=== PATIENT | female | born 1950 | race Caucasian/White ===

== ENCOUNTER 2020-11-06 15:50 | Inpatient (IN) | payer OTHER ==
[~2020-11-06] VITALS: Ht 165.1 cm; Wt 76.5 kg
[~2020-11-06 15:50] MED LIST: ACEBUTCAFT PO; ALBU2.5V5 INH; ALBU90OI6; Aspir 8181 MG; CHOLESTEROL MED PO; CITA20 PO; Cvs Heartburn1 EACH; DAILY MULTIPLE1 EACH; DIAZ2 PO; FENO145 PO; HYDACE5 PO; HYDCHL25; HYDCHL25 PO; LEVSOD50 PO; LEVSOD75 PO; ONDA4 PO; OXYACE5T PO; OXYC5 PO; PROC10 PO; Pravachol40 MG
[2020-11-06 16:44] LABS: PCO2 Venous 47.1 mmHg (38-42); PO2 Venous 29.9 mmHg (38-42); pH Blood Venous 7.41 (7.34-7.37)
[2020-11-06 16:45] LABS: Base Excess Venous 5.3 mmol/L; Bicarbonate Venous 27.1 mmol/L (24.0-30.0)
[2020-11-06 16:53] LABS: BASOPHILS ABSOLUTE AUTO 0.03 K/mm3 (0.00-0.23); BASOPHILS PERCENT AUTO 0 % (0-2); EOSINOPHILS PERCENT AUTO 0 % (0-6); Hematocrit 45.5 % (33.0-51.0); Hemoglobin 15.4 g/dL (11.5-16.0); IMMATURE GRAN ABSOLUTE AUTO 0.14 K/mm3 (0.00-0.10); IMMATURE GRAN PERCENT AUTO 1 % (0-1); LYMPHOCYTES ABSOLUTE AUTO 0.95 K/mm3 (0.84-5.20); LYMPHOCYTES PERCENT AUTO 7 % (21-46); MONOCYTES ABSOLUTE AUTO 0.47 K/mm3 (0.16-1.47); MONOCYTES PERCENT AUTO 4 % (4-13); Mean Corpuscular HGB 30.7 pg (26.0-34.0); Mean Corpuscular HGB Conc 33.8 g/dL (31.5-36.5); Mean Corpuscular Volume 91 fL (80-100); Mean Platelet Volume 9.9 fL (9.1-12.4); NEUTROPHILS ABSOLUTE AUTO 11.38 K/mm3 (1.96-9.15); NEUTROPHILS PERCENT AUTO 88 % (41-73); Platelet Count 265 K/mm3 (150-400); RDW Coefficient Variation 13.4 % (11.7-14.2); Red Blood Cell Count 5.02 M/mm3 (3.80-5.20); White Blood Cell Count 12.97 K/mm3 (4.00-11.30)
[2020-11-06 17:17] LABS: Alanine Aminotransfer (ALT/SGP 35 U/L (12-78); Albumin, Blood 2.6 g/dL (3.4-5.0); Albumin/Globulin Ratio 0.6 (0.8-1.8); Alk Phos 55 U/L (50-136); Anion Gap 7 mmol/L (6-16); Aspartate Aminotrans (AST/SGOT 40 U/L (12-37); Bilirubin, Total 0.5 mg/dL (0.1-1.0); Blood Urea Nitrogen 15 mg/dL (8-24); Bun/Creatinine Ratio 16.2 (12.0-20.0); CO2, Blood 27 mmol/L (21-32); Calcium, Blood 8.2 mg/dL (8.5-10.1); Chloride, Blood 106 mmol/L (98-108); Creatinine, Blood 0.92 mg/dL (0.40-1.00); Globulin, Blood 4.6 g/dL (2.2-4.0); Glomerular Filtration Rate >60 (60-); Glucose, Blood 145 mg/dL (70-99); Potassium, Blood 4.3 mmol/L (3.5-5.5); Sodium, Blood 140 mmol/L (136-145); Total Protein, Blood 7.2 g/dL (6.4-8.2); Troponin I <0.015 ng/mL (0.000-0.040)
--- NOTE | 2020-11-07 05:17 | NUR ---
SHIFT SUMMARY- PT. NEW ADMISSION FROM ED. A&OX2, WITH SOME CONFUSION. ARRIVED TO UNIT ON 15L ON A NON REBREATHER. PT. PLACED ON HIGH FLOW NC AND 02 DECREASED TO 12L, SATS @92%. PT. HAD NO COMPLAINTS OF PAIN OR DISCOMFORT DURING THE NIGHT. CONT/INCONT, 1PA TO BSC AND ATTENDS IN PLACE. SLEPT T/O THE NIGHT, NO APPARENT DISTRESS NOTED. CALL LIGHT WITHIN REACH, SIDE RAILS UPX2, AND BED ALARM ON FOR SAFETY. WILL CONT TO MONITOR.
[2020-11-07 05:36] LABS: BASOPHILS ABSOLUTE AUTO 0.03 K/mm3 (0.00-0.23); BASOPHILS PERCENT AUTO 0 % (0-2); EOSINOPHILS PERCENT AUTO 0 % (0-6); Hematocrit 45.5 % (33.0-51.0); Hemoglobin 15.2 g/dL (11.5-16.0); Mean Corpuscular HGB 30.4 pg (26.0-34.0); Mean Corpuscular HGB Conc 33.4 g/dL (31.5-36.5); Mean Corpuscular Volume 91 fL (80-100); Mean Platelet Volume 9.8 fL (9.1-12.4); Platelet Count 241 K/mm3 (150-400); RDW Coefficient Variation 13.5 % (11.7-14.2); RDW Standard Deviation 45.2 fL (35.1-46.3); White Blood Cell Count 12.17 K/mm3 (4.00-11.30)
[2020-11-07 05:47] LABS: IMMATURE GRAN ABSOLUTE AUTO 0.12 K/mm3 (0.00-0.10); IMMATURE GRAN PERCENT AUTO 1 % (0-1); LYMPHOCYTES ABSOLUTE AUTO 0.86 K/mm3 (0.84-5.20); LYMPHOCYTES PERCENT AUTO 7 % (21-46); MONOCYTES ABSOLUTE AUTO 0.31 K/mm3 (0.16-1.47); MONOCYTES PERCENT AUTO 3 % (4-13); NEUTROPHILS ABSOLUTE AUTO 10.85 K/mm3 (1.96-9.15); NEUTROPHILS PERCENT AUTO 89 % (41-73)
[2020-11-07 06:02] LABS: BASOPHILS PERCENT MAN 0 % (0-2); EOSINOPHILS PERCENT MAN 0 % (0-6); LYMPHOCYTES PERCENT MAN 5 % (21-46); MONOCYTES ABSOLUTE MAN 0.36 K/mm3 (0.16-1.47); MONOCYTES PERCENT MAN 3 % (4-13); NEUTROPHILS ABSOLUTE MAN 11.19 K/mm3 (1.96-9.15); SEG NEUTROPHILS PERCENT MAN 92 % (41-73); TOTAL CELLS COUNTED 100
[2020-11-07 06:40] LABS: Alanine Aminotransfer (ALT/SGP 33 U/L (12-78); Albumin, Blood 2.3 g/dL (3.4-5.0); Albumin/Globulin Ratio 0.5 (0.8-1.8); Alk Phos 54 U/L (50-136); Anion Gap 7 mmol/L (6-16); Aspartate Aminotrans (AST/SGOT 30 U/L (12-37); Bilirubin, Total 0.5 mg/dL (0.1-1.0); Blood Urea Nitrogen 18 mg/dL (8-24); Bun/Creatinine Ratio 23.9 (12.0-20.0); CO2, Blood 24 mmol/L (21-32); Calcium, Blood 8.2 mg/dL (8.5-10.1); Chloride, Blood 108 mmol/L (98-108); Creatinine, Blood 0.75 mg/dL (0.40-1.00); Globulin, Blood 4.7 g/dL (2.2-4.0); Glomerular Filtration Rate >60 (60-); Glucose, Blood 212 mg/dL (70-99); Magnesium, Blood 2.8 mg/dL (1.6-2.4); Potassium, Blood 4.3 mmol/L (3.5-5.5); Sodium, Blood 139 mmol/L (136-145); Troponin I <0.015 ng/mL (0.000-0.040)
[2020-11-07 06:42] LABS: C-REACTIVE PROTEIN, EXT RANGE >19.000 mg/dL (0.000-0.300)
--- NOTE | 2020-11-07 12:51 | NUR ---
The patient is trying to prone. She was unabel to fully roll over, but stayed on her left side for about 30minutes. she is getting oxygen via high flow nasal cannual 12lpm and when rolled she has increased coughing. the patient has been given mucinex per EMR to help with nasal congestion and cough. the patient was rolled to the right side and again started coughing, her SP02 was 90%.
--- NOTE | 2020-11-07 15:53 | NUR ---
PT IS A/OX4, PLEASANT AND COOPERATIVE, THE PT IS BED REST AT THIS TIME UP WITH 1 ASSIST TO THE BSC. THE PT'S O2 SAT'S DROP WITH ACTIVITY. THE PT HAS BEEN ENCOURAGED TO LAY OR OR AT LEAST ON HER SIDE T/OT THE DAY. THE PT IS ON HIGH FLOW O2 @ 15L/MIN. CALL LIGHT IN REACH WILL, CONTINUE TO MONITOR AND ASSESS FOR CHANGES
[2020-11-08 05:39] LABS: BASOPHILS ABSOLUTE AUTO 0.05 K/mm3 (0.00-0.23); BASOPHILS PERCENT AUTO 0 % (0-2); EOSINOPHILS PERCENT AUTO 0 % (0-6); Hematocrit 42.9 % (33.0-51.0); Hemoglobin 14.5 g/dL (11.5-16.0); IMMATURE GRAN ABSOLUTE AUTO 0.13 K/mm3 (0.00-0.10); IMMATURE GRAN PERCENT AUTO 1 % (0-1); LYMPHOCYTES ABSOLUTE AUTO 0.99 K/mm3 (0.84-5.20); LYMPHOCYTES PERCENT AUTO 5 % (21-46); MONOCYTES ABSOLUTE AUTO 0.58 K/mm3 (0.16-1.47); MONOCYTES PERCENT AUTO 3 % (4-13); Mean Corpuscular HGB 30.7 pg (26.0-34.0); Mean Corpuscular HGB Conc 33.8 g/dL (31.5-36.5); Mean Corpuscular Volume 91 fL (80-100); Mean Platelet Volume 9.8 fL (9.1-12.4); NEUTROPHILS ABSOLUTE AUTO 16.73 K/mm3 (1.96-9.15); NEUTROPHILS PERCENT AUTO 91 % (41-73); Platelet Count 313 K/mm3 (150-400); RDW Coefficient Variation 13.2 % (11.7-14.2); Red Blood Cell Count 4.72 M/mm3 (3.80-5.20); White Blood Cell Count 18.48 K/mm3 (4.00-11.30)
[2020-11-08 06:05] LABS: Alanine Aminotransfer (ALT/SGP 39 U/L (12-78); Albumin, Blood 2.2 g/dL (3.4-5.0); Albumin/Globulin Ratio 0.5 (0.8-1.8); Alk Phos 57 U/L (50-136); Anion Gap 7 mmol/L (6-16); Aspartate Aminotrans (AST/SGOT 36 U/L (12-37); Bilirubin, Total 0.5 mg/dL (0.1-1.0); Blood Urea Nitrogen 23 mg/dL (8-24); Bun/Creatinine Ratio 33.3 (12.0-20.0); CO2, Blood 24 mmol/L (21-32); Calcium, Blood 8.2 mg/dL (8.5-10.1); Chloride, Blood 110 mmol/L (98-108); Creatinine, Blood 0.69 mg/dL (0.40-1.00); Globulin, Blood 4.4 g/dL (2.2-4.0); Glomerular Filtration Rate >60 (60-); Glucose, Blood 236 mg/dL (70-99); Potassium, Blood 4.1 mmol/L (3.5-5.5); Sodium, Blood 141 mmol/L (136-145); Total Protein, Blood 6.6 g/dL (6.4-8.2)
--- NOTE | 2020-11-08 06:20 | NUR ---
SHIFT SUMMARY- PT. A&O LAST NIGHT, ON 15L HIGH FLOW, SATS MAINTAINED. PT. DESATS W/MOVEMENT. NO COMPLAINTS OF PAIN OR DISCOMFORT, CALLS APPROPRIATELY, AND ABLE TO MAKE NEEDS KNOWN. RESTED QUIETLY DURING THE NIGHT, NO APPARENT DISTRESS NOTED. CALL LIGHT WITHIN REACH AND SIDE RAILS UPX2. WILL CONT TO MONITOR.
--- NOTE | 2020-11-08 18:00 | NUR ---
SHIFT SUMMARY PT NOW ON 13 L/MIN HIGH FLOW SATING 88-91% @ REST. A&O4, CALLS APPROPRAITELY. INCONTINENT. GOOD ORAL INTAKE. DENIES ANY DISTRESS. NO ACUTE CHANGES,
[2020-11-09 04:59] LABS: BASOPHILS ABSOLUTE AUTO 0.04 K/mm3 (0.00-0.23); BASOPHILS PERCENT AUTO 0 % (0-2); EOSINOPHILS PERCENT AUTO 0 % (0-6); Hemoglobin 14.8 g/dL (11.5-16.0); IMMATURE GRAN ABSOLUTE AUTO 0.15 K/mm3 (0.00-0.10); IMMATURE GRAN PERCENT AUTO 1 % (0-1); LYMPHOCYTES ABSOLUTE AUTO 0.77 K/mm3 (0.84-5.20); LYMPHOCYTES PERCENT AUTO 4 % (21-46); MONOCYTES ABSOLUTE AUTO 0.65 K/mm3 (0.16-1.47); MONOCYTES PERCENT AUTO 3 % (4-13); Mean Corpuscular HGB 30.9 pg (26.0-34.0); Mean Corpuscular HGB Conc 33.6 g/dL (31.5-36.5); Mean Corpuscular Volume 92 fL (80-100); Mean Platelet Volume 9.9 fL (9.1-12.4); NEUTROPHILS ABSOLUTE AUTO 18.88 K/mm3 (1.96-9.15); NEUTROPHILS PERCENT AUTO 92 % (41-73); Platelet Count 326 K/mm3 (150-400); RDW Coefficient Variation 13.3 % (11.7-14.2); RDW Standard Deviation 45.1 fL (35.1-46.3); Red Blood Cell Count 4.79 M/mm3 (3.80-5.20); White Blood Cell Count 20.49 K/mm3 (4.00-11.30)
[2020-11-09 05:31] LABS: Anion Gap 6 mmol/L (6-16); Blood Urea Nitrogen 24 mg/dL (8-24); Bun/Creatinine Ratio 35.6 (12.0-20.0); CO2, Blood 25 mmol/L (21-32); Calcium, Blood 8.2 mg/dL (8.5-10.1); Chloride, Blood 110 mmol/L (98-108); Creatinine, Blood 0.67 mg/dL (0.40-1.00); Glomerular Filtration Rate >60 (60-); Glucose, Blood 246 mg/dL (70-99); Magnesium, Blood 2.6 mg/dL (1.6-2.4); Phosphorus, Blood 2.9 mg/dL (2.5-4.9); Potassium, Blood 4.7 mmol/L (3.5-5.5); Sodium, Blood 141 mmol/L (136-145)
--- NOTE | 2020-11-09 06:17 | NUR ---
SHIFT SUMMARY- NO ACUTE EVENTS OVERNIGHT. PT. RESTED QUIETLY T/O THE NIGHT. NO COMPLAINTS DURING THE NIGHT. TITRATED TO 8L HIGH FLOW, SATS MAINTAINED. VSS. CALL LIGHT WITHIN REACH AND SIDE RAILS UPX2. WILL CONT TO MONITOR.
--- NOTE | 2020-11-09 18:10 | NUR ---
SHIFT SUMMARY PT MORE WITHDRAWN THIS SHIFT. ASPIRATION RISK NOTED, THICK LIQUIDS ORDERED FOR NOW AND SUPERVISE FEEDS UNTIL ST CAN EVALUATE. DIETARY CONSULT PLACED FOR POOR ORAL INTAKE, PT REFUSING ALL MEALS EVEN SUPPLEMENTAL DRINKS. REMAINS ON 8 L/MIN HF NC AND SATING ABOUT 92%. CALL LIGHT WITHIN REACH, DOES NOT ALWAYS CALL. BED ALARM ON.
--- NOTE | 2020-11-09 19:00 | NUR ---
ASSUMED CARE RECEIVED REPORT FROM KT DO. PT RESTING, IN NAD. NO ACUTE NEEDS ASSESSED. CALL LIGHT, POSSEESSIONS IN REACH, BED IN LOW AND LOCKED POSITION WITH ALARMS ON. WCTM.
[2020-11-10 04:38] LABS: Hematocrit 42.7 % (33.0-51.0); Hemoglobin 14.6 g/dL (11.5-16.0); Mean Corpuscular HGB 30.6 pg (26.0-34.0); Mean Corpuscular HGB Conc 34.2 g/dL (31.5-36.5); Mean Corpuscular Volume 90 fL (80-100); Mean Platelet Volume 9.1 fL (9.1-12.4); Platelet Count 382 K/mm3 (150-400); RDW Coefficient Variation 13.2 % (11.7-14.2); RDW Standard Deviation 43.8 fL (35.1-46.3); Red Blood Cell Count 4.77 M/mm3 (3.80-5.20); White Blood Cell Count 15.91 K/mm3 (4.00-11.30)
[2020-11-10 04:54] LABS: Anion Gap 7 mmol/L (6-16); Blood Urea Nitrogen 22 mg/dL (8-24); Bun/Creatinine Ratio 28.2 (12.0-20.0); CO2, Blood 24 mmol/L (21-32); Calcium, Blood 7.5 mg/dL (8.5-10.1); Chloride, Blood 113 mmol/L (98-108); Creatinine, Blood 0.78 mg/dL (0.40-1.00); Glomerular Filtration Rate >60 (60-); Glucose, Blood 238 mg/dL (70-99); Potassium, Blood 4.8 mmol/L (3.5-5.5); Sodium, Blood 144 mmol/L (136-145)
--- NOTE | 2020-11-10 07:35 | NUR ---
SHIFT SUMMARY PT RESTING COMFORTABLY, IN NAD. VS REVIEWED, WNL. O2 SATS STABLE ON 7L/NC. PT CONTINUES TO BE INCONTINENT. APPEARS VERY WITHDRAWN. PT ABLE TO TOLERATE SMALL SNACK OF PUDDING LAST NOC. NO C/O PAIN. NO OTHER ACUTE CONCERNS TO REPORT OVERNIGHT. CALL LIGHT, POSSESSIONS IN REACH, IV ABX INFUSING ORDERED. REPORT GIVEN TO KT DAVIS.
--- NOTE | 2020-11-10 19:14 | NUR ---
Patient is A/OX2 to self and location, she is pleasent and cooperative with care. She is forgetful and has a flat affect. she is on 7lpm ns and spo2 was >90% throughout the day. she was a 1 person assist to BSC but she felt dizzy the last time she was moved and now uses the bed lucas. She is able to make small adjustments but is easaly fatigued. There were no acute changes this shift.
--- NOTE | 2020-11-11 03:38 | NUR ---
PT STARTED ON CLINIMIX W/LIPIDS DURING DAY SHIFT W/ACTIVE LR ORDER. CLARIFIED MAINTENANCE IVF ORDERS W/LR DC'D BY .
--- NOTE | 2020-11-11 04:23 | NUR ---
SUMMARY: PT A/OX2 TO SELF/PLACE AND IS PLEASANT AND COOPERATIVE W/CARE. SHE'S FORGETFUL W/BED ALARM ON FOR FALL RISK. PT INCONTINENT THIS SHIFT W/ATTENDS CHANGED PRN. PT REPOSITIONS SELF GRADUALLY W/TURN SCHEDULE MAINTAINED. SHE REMAINS ON 7L HIGH FLOW O2 W/SPO2 WNL, PT STILL DESATS TO 86% ON RA. RESPS E/U ON RA AND NO DYSPNEA OBSERVED. SHE WAS AGREEABLE TO HS MEDS AND SWALLOWED PILLS W/O S/S ASPIRATION. PT MADE NPO X ICE/MEDS AND WAS STARTED ON CLINIMIX W/LIPIDS ON DAY SHIFT. MAINTENANCE FLUIDS CLARIFIED AND LR SL'D. IV ABX RECIEVED T/O NOCTE. PT DENIED PAIN AND ALL OTHER COMPLAINTS. VSS/AFEBRILE. WCTM AND REPORT TO DAY RN.
[2020-11-11 05:08] LABS: BASOPHILS ABSOLUTE AUTO 0.06 K/mm3 (0.00-0.23); BASOPHILS PERCENT AUTO 0 % (0-2); EOSINOPHILS PERCENT AUTO 0 % (0-6); Hematocrit 43.9 % (33.0-51.0); Hemoglobin 14.6 g/dL (11.5-16.0); IMMATURE GRAN ABSOLUTE AUTO 0.23 K/mm3 (0.00-0.10); IMMATURE GRAN PERCENT AUTO 1 % (0-1); LYMPHOCYTES ABSOLUTE AUTO 0.75 K/mm3 (0.84-5.20); LYMPHOCYTES PERCENT AUTO 4 % (21-46); MONOCYTES ABSOLUTE AUTO 0.69 K/mm3 (0.16-1.47); MONOCYTES PERCENT AUTO 4 % (4-13); Mean Corpuscular HGB 30.8 pg (26.0-34.0); Mean Corpuscular HGB Conc 33.3 g/dL (31.5-36.5); Mean Corpuscular Volume 93 fL (80-100); Mean Platelet Volume 9.2 fL (9.1-12.4); NEUTROPHILS ABSOLUTE AUTO 16.62 K/mm3 (1.96-9.15); NEUTROPHILS PERCENT AUTO 91 % (41-73); Platelet Count 323 K/mm3 (150-400); RDW Coefficient Variation 13.1 % (11.7-14.2); RDW Standard Deviation 44.7 fL (35.1-46.3); Red Blood Cell Count 4.74 M/mm3 (3.80-5.20); White Blood Cell Count 18.35 K/mm3 (4.00-11.30)
[2020-11-11 05:43] LABS: Anion Gap 7 mmol/L (6-16); Blood Urea Nitrogen 20 mg/dL (8-24); Bun/Creatinine Ratio 29.8 (12.0-20.0); CO2, Blood 20 mmol/L (21-32); Calcium, Blood 7.3 mg/dL (8.5-10.1); Chloride, Blood 110 mmol/L (98-108); Creatinine, Blood 0.67 mg/dL (0.40-1.00); Glomerular Filtration Rate >60 (60-); Glucose, Blood 281 mg/dL (70-99); Potassium, Blood 4.7 mmol/L (3.5-5.5); Sodium, Blood 137 mmol/L (136-145); Triglycerides 57 mg/dL (30-160)
--- NOTE | 2020-11-11 15:35 | NUR ---
Shift Summary, The patient is A/OX2 TO SELF AND PLACE, SHE IS SLOW TO RESPOND TO QUESTIONS BUT COOPERATIVE. The patient has a flat affect while working with her. She still has a non-productive cough and is on 7lpm nc, spo2 was 92%, her spo2 decreases on exertion. pt is 1 prsn assist to the BSC but she has continent/incontinence. No acute changes this shift. The patient currently resting in her bed.
[2020-11-12 05:06] LABS: BASOPHILS ABSOLUTE AUTO 0.02 K/mm3 (0.00-0.23); BASOPHILS PERCENT AUTO 0 % (0-2); EOSINOPHILS PERCENT AUTO 0 % (0-6); Hematocrit 41.4 % (33.0-51.0); Hemoglobin 14.3 g/dL (11.5-16.0); IMMATURE GRAN ABSOLUTE AUTO 0.21 K/mm3 (0.00-0.10); IMMATURE GRAN PERCENT AUTO 2 % (0-1); LYMPHOCYTES ABSOLUTE AUTO 0.76 K/mm3 (0.84-5.20); LYMPHOCYTES PERCENT AUTO 6 % (21-46); MONOCYTES ABSOLUTE AUTO 0.44 K/mm3 (0.16-1.47); MONOCYTES PERCENT AUTO 3 % (4-13); Mean Corpuscular HGB 30.4 pg (26.0-34.0); Mean Corpuscular HGB Conc 34.5 g/dL (31.5-36.5); NEUTROPHILS ABSOLUTE AUTO 11.74 K/mm3 (1.96-9.15); NEUTROPHILS PERCENT AUTO 89 % (41-73); Platelet Count 361 K/mm3 (150-400); RDW Coefficient Variation 12.7 % (11.7-14.2); RDW Standard Deviation 41.6 fL (35.1-46.3); White Blood Cell Count 13.17 K/mm3 (4.00-11.30)
--- NOTE | 2020-11-12 05:07 | NUR ---
SUMMARY: PT MORE CONFUSED AND IMPULSIVE TONIGHT. SHE SET BED ALARM OFF MULTI TIMES TO URGENTLY USE BSC. 1PA REQUIRED OOB D/T SOB AND WEAKNESS UPON EXERTION. TITRATED O2 DOWN TO 4L HF BUT MILD DESATS TO 88% NOTED W/MOBILITY. IV ABX RECIEVED THEN SL. PT TOLERATED MEDS IN APPLESAUCE W/O S/S ASPIRATION. ENSURES ENCOURAGED FOR POOR APPETITE. NO ACUTE CHANGES, VSS/AFEBRILE. WCTM AND REPORT TO DAY RN.
[2020-11-12 05:08] LABS: Mean Corpuscular Volume 88 fL (80-100)
[2020-11-12 05:29] LABS: Anion Gap 6 mmol/L (6-16); Blood Urea Nitrogen 16 mg/dL (8-24); Bun/Creatinine Ratio 23.7 (12.0-20.0); CO2, Blood 24 mmol/L (21-32); Calcium, Blood 7.9 mg/dL (8.5-10.1); Chloride, Blood 108 mmol/L (98-108); Creatinine, Blood 0.67 mg/dL (0.40-1.00); Glomerular Filtration Rate >60 (60-); Glucose, Blood 230 mg/dL (70-99); Potassium, Blood 4.6 mmol/L (3.5-5.5); Sodium, Blood 138 mmol/L (136-145)
--- NOTE | 2020-11-12 17:59 | NUR ---
SHIFT SUMMARY PT AXO X1-2, FORGETFUL AND EAGER TO BE DISCHARGED HOME. UP WITH 1 ASSIST TO BSC WITH GB AND FWW. SEE PT NOTE. ON 4L VIA HFNC. DENIES PAIN, SOB AND NV. BED IN LOW POSITION, CALL LIGHT WITHIN REACH
--- NOTE | 2020-11-12 19:00 | NUR ---
ASSUMED CARE RECEIVED REPORT FROM KT SHEPPARD. PT RESTING, IN NAD. NO ACUTE NEEDS ASSESSED AT THIS TIME. CALL LIGHT, POSSESSIONS IN REACH, BED IN LOW AND LOCKED POSITION WITH ALARMS ON. [facility].
--- NOTE | 2020-11-12 21:30 | NUR ---
THIS RN NOTIFIED OF PT HAVING EXITED ROOM AND AMBULATING IN HALLWAY. BOOMBOAT OPERATOR'S AND SHOP LABORER ATTEMPTING TO GET PT TO GO BACK INTO ROOM. PT HELPED BACK TO BED AND ASSISTED TO GET CLEANED UP.
--- NOTE | 2020-11-13 04:57 | NUR ---
SHIFT SUMMARY PT RESTING, IN NAD. APPEARED TO SLEEP WELL OVERNIGHT. VS REVIEWED,WNL, O2 SATS STABLE. ROSAURA VEST REMAINS IN PLACE D/T HIGH FALL RISK AND INCREASED CONFUSION; PT A&O TO SELF, FOLLOWS SIMPLE DIRECTIONS. NO OTHER ACUTE CONCERNS TO REPORT OVERNIGHT. NO ACUTE NEEDS ASSESSED AT THIS TIME. CALL LIGHT, POSSESSIONS IN REACH, BED IN LOW AND LOCKED POSITION WITH ALARMS ON. WCTM, REPORT OFF TO ONCOMING RN.
[2020-11-13 05:20] LABS: BASOPHILS ABSOLUTE AUTO 0.02 K/mm3 (0.00-0.23); BASOPHILS PERCENT AUTO 0 % (0-2); EOSINOPHILS PERCENT AUTO 0 % (0-6); Hematocrit 43.6 % (33.0-51.0); Hemoglobin 15.1 g/dL (11.5-16.0); IMMATURE GRAN PERCENT AUTO 1 % (0-1); LYMPHOCYTES ABSOLUTE AUTO 0.88 K/mm3 (0.84-5.20); LYMPHOCYTES PERCENT AUTO 6 % (21-46); MONOCYTES ABSOLUTE AUTO 0.42 K/mm3 (0.16-1.47); MONOCYTES PERCENT AUTO 3 % (4-13); Mean Corpuscular HGB 30.5 pg (26.0-34.0); Mean Corpuscular HGB Conc 34.6 g/dL (31.5-36.5); Mean Corpuscular Volume 88 fL (80-100); Mean Platelet Volume 8.9 fL (9.1-12.4); NEUTROPHILS ABSOLUTE AUTO 12.48 K/mm3 (1.96-9.15); NEUTROPHILS PERCENT AUTO 89 % (41-73); Platelet Count 390 K/mm3 (150-400); Red Blood Cell Count 4.95 M/mm3 (3.80-5.20)
[2020-11-13 06:11] LABS: Anion Gap 7 mmol/L (6-16); Blood Urea Nitrogen 16 mg/dL (8-24); Bun/Creatinine Ratio 18.9 (12.0-20.0); CO2, Blood 24 mmol/L (21-32); Calcium, Blood 8.1 mg/dL (8.5-10.1); Chloride, Blood 106 mmol/L (98-108); Creatinine, Blood 0.85 mg/dL (0.40-1.00); Glomerular Filtration Rate >60 (60-); Glucose, Blood 223 mg/dL (70-99); Potassium, Blood 4.8 mmol/L (3.5-5.5); Sodium, Blood 137 mmol/L (136-145)
--- NOTE | 2020-11-13 18:21 | NUR ---
SHIFT SUMMARY PATIENT IS A/O X2, FOLLOWS INSTRUCTIONS AND ABLE TO MAKE NEEDS MET. THE PATIENT WAS AGITATED THIS AM, HAS REMAINED PLEASANT THIS AFTERNOON. THE PATIENT WAS CHANGED TO AN NPO DIET AT THIS TIME. PATIENT IS WAITING TO HAVE AN MRI DONE POSSIBLY TOMORROW. PATIENT IS IN BED WITH THE ALARM ON AND CALL LIGHT WITHIN REACH.
--- NOTE | 2020-11-13 19:00 | NUR ---
ASSUMED CARE RECEIVED REPORT FROM KT CLEMENS. NO ACUTE NEEDS ASSESSED. CALL LIGHT IN REACH, ALARMS ON.
[2020-11-14 05:46] LABS: BASOPHILS ABSOLUTE AUTO 0.02 K/mm3 (0.00-0.23); BASOPHILS PERCENT AUTO 0 % (0-2); EOSINOPHILS PERCENT AUTO 0 % (0-6); Hematocrit 42.5 % (33.0-51.0); Hemoglobin 14.5 g/dL (11.5-16.0); IMMATURE GRAN ABSOLUTE AUTO 0.15 K/mm3 (0.00-0.10); IMMATURE GRAN PERCENT AUTO 1 % (0-1); LYMPHOCYTES ABSOLUTE AUTO 2.08 K/mm3 (0.84-5.20); LYMPHOCYTES PERCENT AUTO 18 % (21-46); MONOCYTES ABSOLUTE AUTO 0.95 K/mm3 (0.16-1.47); MONOCYTES PERCENT AUTO 8 % (4-13); Mean Corpuscular HGB 30.3 pg (26.0-34.0); Mean Corpuscular HGB Conc 34.1 g/dL (31.5-36.5); Mean Corpuscular Volume 89 fL (80-100); NEUTROPHILS ABSOLUTE AUTO 8.57 K/mm3 (1.96-9.15); NEUTROPHILS PERCENT AUTO 73 % (41-73); Platelet Count 354 K/mm3 (150-400); RDW Coefficient Variation 13.2 % (11.7-14.2); RDW Standard Deviation 42.9 fL (35.1-46.3); Red Blood Cell Count 4.78 M/mm3 (3.80-5.20); White Blood Cell Count 11.77 K/mm3 (4.00-11.30)
--- NOTE | 2020-11-14 07:29 | NUR ---
SUPERVISOR TANK CLEANING SUMMARY PT RESTING, IN NAD. VS REVIEWED,WNL. O2 SATS STABLE ON RA. NO ACUTE CONCERNS TO REPORT OVERNIGHT. ROSAURA VEST IN PLACE. CALL LIGHT, POSSESSIONS IN REACH, BED IN LOW AND LOCKED POSITION WITH ALARMS ON. REPORT GIVEN TO KT HOROWITZ.
--- NOTE | 2020-11-14 12:26 | NUR ---
Pt. has potential to D/C over the weeked. Discussed D/C meds with Dr. Avalos. Elquis 2.5mg tabs quantity 60 placed in lockbox outside of patient's room.
--- NOTE | 2020-11-14 16:29 | NUR ---
SHIFT SUMMARY PT IS AOX4. PT WISHES TO BE DC'D SOON. ANTWAN MCGRAWT DC'D THIS SHIFT. PT DENIES SOB, N/V. PT SATS GREATER THAN 90% ON RA. NO PROCEDURES DONE THIS SHIFT. PT IS INDEPENDENT IN THE ROOM. PT EVALUATED BY PT. ENHANCED ISOLATION PRECAUTIONS MAINTAINED T/O SHIFT. PT IS IN ROOM, CALL LIGHT IN REACH, LOW POSITION.
[2020-11-14 19:16] LABS: Source, Urine Catheter
[2020-11-14 19:24] LABS: Appearance, Urine Clear (Clear); Bilirubin, Urine Neg (Neg); Blood, Urine 4+ (Neg); Color, Urine Yellow (P-Yellow); Glucose Qualitative, Urine Neg (Neg); Ketones, Urine Neg (Neg); Leukocyte Esterase, Urine 1+ (Neg); Nitrite, Urine Neg (Neg); Protein, Urine Neg (Neg); Specific Gravity, Urine 1.015 (1.003-1.022); Urobilinogen, Urine NORM (Normal); pH, Urine 6.5 (5.0-8.0)
[2020-11-14 19:43] LABS: Bacteria Few /hpf; Red Blood Cells, Urine 25-50 /hpf (0-2); Squamous Epithelial Cells Few /hpf (Few)
[2020-11-14 19:44] LABS: Yeast/Fungi Urine Few /hpf
[2020-11-15 06:02] LABS: BASOPHILS ABSOLUTE AUTO 0.03 K/mm3 (0.00-0.23); BASOPHILS PERCENT AUTO 0 % (0-2); Bun/Creatinine Ratio 13.3 (12.0-20.0); Creatinine, Blood 0.98 mg/dL (0.40-1.00); EOSINOPHILS ABSOLUTE AUTO 0.07 K/mm3 (0.00-0.68); EOSINOPHILS PERCENT AUTO 1 % (0-6); Hematocrit 46.1 % (33.0-51.0); Hemoglobin 15.6 g/dL (11.5-16.0); IMMATURE GRAN ABSOLUTE AUTO 0.16 K/mm3 (0.00-0.10); IMMATURE GRAN PERCENT AUTO 1 % (0-1); LYMPHOCYTES ABSOLUTE AUTO 2.14 K/mm3 (0.84-5.20); LYMPHOCYTES PERCENT AUTO 19 % (21-46); MONOCYTES ABSOLUTE AUTO 0.88 K/mm3 (0.16-1.47); MONOCYTES PERCENT AUTO 8 % (4-13); Mean Corpuscular HGB 30.2 pg (26.0-34.0); Mean Corpuscular HGB Conc 33.8 g/dL (31.5-36.5); Mean Corpuscular Volume 89 fL (80-100); Mean Platelet Volume 9.2 fL (9.1-12.4); NEUTROPHILS ABSOLUTE AUTO 8.01 K/mm3 (1.96-9.15); NEUTROPHILS PERCENT AUTO 71 % (41-73); Platelet Count 367 K/mm3 (150-400); Potassium, Blood 4.1 mmol/L (3.5-5.5); RDW Coefficient Variation 13.2 % (11.7-14.2); RDW Standard Deviation 43.6 fL (35.1-46.3); Red Blood Cell Count 5.17 M/mm3 (3.80-5.20); White Blood Cell Count 11.29 K/mm3 (4.00-11.30)
[2020-11-15] MEDS ORDERED: ELIQUIS2.5 MG PO (14:26)
[2020-11-15] MEDS ORDERED: METPRE4DP PO (14:27)
[2020-11-15] MEDS ORDERED: Diflucan100 MG PO (14:27)
--- NOTE | 2020-11-15 14:54 | NUR ---
DC NOTE PT IV REMOVED BY THIS RN PER DOCUMENTATION. DC INSTRUCTIONS AND MEDICATIONS REVIEWED WITH PT WHO VERBALIZED UNDERSTANDING. PT DRESSED SELF IN HOME CLOTHING. BELONGINGS GATHERED FROM ROOM. PT WHEELED OFF UNIT WITH NO HOME O2. PT LEFT BUILDING TO PRIVATE VEHICLE WITH SON. SON HAS PT'S MEDICATIONS.
== END 2020-11-15 14:50 | disposition home or self-care (01) | DRG 177 ==
LOC: ER 15:50 → MEDS 19:10
PROVIDERS: Family Medicine; Internal Medicine; Physician Assistant; ADMIT Family Medicine
PROC: 8E0ZXY6 Isolation (ICD-10-PCS; principal; 2020-11-06)
PROC: 3E0333Z Introduction of Anti-inflammatory into Peripheral Vein, Percutaneous Approach (ICD-10-PCS; 2020-11-06)
PROC: XW033E5 Introduction of Remdesivir Anti-infective into Peripheral Vein, Percutaneous Approach, New Technology Group 5 (ICD-10-PCS; 2020-11-07)
PROC: 3E03329 Introduction of Other Anti-infective into Peripheral Vein, Percutaneous Approach (ICD-10-PCS; 2020-11-09)
DX: U07.1 COVID-19 (principal); J12.82 Pneumonia due to coronavirus disease 2019; J96.01 Acute respiratory failure with hypoxia; G92 Toxic encephalopathy; E46 Unspecified protein-calorie malnutrition; E03.9 Hypothyroidism, unspecified; T38.0X5A Adverse effect of glucocorticoids and synthetic analogues, initial encounter; R73.9 Hyperglycemia, unspecified; Z91.030 Bee allergy status; I10 Essential (primary) hypertension; Z98.890 Other specified postprocedural states; Z88.8 Allergy status to other drugs, medicaments and biological substances; J45.909 Unspecified asthma, uncomplicated; Z79.899 Other long term (current) drug therapy; K21.9 Gastro-esophageal reflux disease without esophagitis; I67.1 Cerebral aneurysm, nonruptured; Z68.31 Body mass index [BMI] 31.0-31.9, adult
CPT/HCPCS: 36415; 70450; 71045; 71260; 80048; 80053; 81001; 82803; 82947; 83605; 83735; 83880; 84100; 84145; 84478; 84484; 85025; 85027; 85651; 86140; 87086; 92526; 92610; 93005; 93010; 94760; 96374; 97110; 97116; 97162; 97530; 99284-25; 99285-25; A9270; J0456; J1100; J1650; J2405; J2543; J2920; J7030; J7050; J7120; Q9967; U0004

== ENCOUNTER 2021-11-04 12:18 | Day surgery (SDC) | payer OTHER ==
[~2021-11-04] VITALS: Ht 167.6 cm; Wt 76.3 kg
[~2021-11-04 12:18] MED LIST changes: +Diflucan100 MG PO; +ELIQUIS2.5 MG PO; +METPRE4DP PO
[2021-11-04] MEDS ORDERED: Lisinopril2.5 MG (12:44)
== END 2021-11-04 14:43 | disposition home or self-care (01) ==
LOC: ORSCSDS 12:18
PROVIDERS: Internal Medicine Gastroenterology
PROC: 0DBP8ZX Excision of Rectum, Via Natural or Artificial Opening Endoscopic, Diagnostic (ICD-10-PCS; principal; 2021-11-04 13:45)
DX: Z12.11 Encounter for screening for malignant neoplasm of colon (principal); Z86.010 Personal history of colon polyps; Z80.0 Family history of malignant neoplasm of digestive organs; K62.1 Rectal polyp; K57.30 Diverticulosis of large intestine without perforation or abscess without bleeding; Z79.899 Other long term (current) drug therapy
CPT/HCPCS: 88305; J0461; J2405; J2704; J7120